=== PATIENT | male | born 1995 | race American Indian/Alaskan Native ===

== ENCOUNTER 2019-03-13 00:16 | Emergency (ER) | payer OTHER ==
[~2019-03-13] VITALS: Ht 177.8 cm; Wt 95.2 kg
[2019-03-13] MEDS ORDERED: ZYRTEC10 M3 PO (00:26)
== END 2019-03-13 01:22 | disposition home or self-care (01) ==
LOC: ED 00:16
DX: F45.8 Other somatoform disorders (principal)
CPT/HCPCS: 80053; 85025; 99284